=== PATIENT | female | born 1985 | race Caucasian/White ===

== ENCOUNTER 2020-12-04 14:41 | Day surgery (SDC) | payer BC ==
[~2020-12-04] VITALS: Ht 157.5 cm; Wt 112.5 kg
[~2020-12-04 14:41] MED LIST: LEVOTHYROXIN0.075 MG PO
[2020-12-04 15:10] VITALS: BP 154/95; PULSE 99; TEMP 98.7
[2020-12-04] MEDS ORDERED: FORTAMET500 M1 PO (15:30)
[2020-12-04] MEDS ORDERED: SYNTHROID0.2 MG/TAB PO (15:30)
[2020-12-04] MEDS ORDERED: FLOMAX 0.40.4 MG/CAP PO (15:31)
[2020-12-04] MEDS ORDERED: PROTONIX 40MG T40 MG PO (15:31)
[2020-12-04] MEDS ORDERED: THE MEDICINE S200 M2 PO (15:32)
[2020-12-04] MEDS ORDERED: PRENATAL TABLET PO (15:32)
[2020-12-04] MEDS ORDERED: VITAMIND3 5000 PO (15:32)
[2020-12-04] MEDS ORDERED: PYRIDIUM 100MG100 MG PO (16:23)
[2020-12-04] MEDS ORDERED: NORCO 325 MG-51 TAB PO (16:23)
[2020-12-04 17:25] VITALS: BP 138/81; PULSE 71; TEMP 97.5
--- NOTE | 2020-12-04 17:25 | NUR ---
The patient arrived back to [facility] from the recovery room and appears alert and oriented at this time. The patient denies any pain or nausea at this time. The patient has tried some ice chips and appears to be tolerating them well. The patient agrees to try some toast at this time. Post operative vital signs were started at this time. The patient's is at her bedside at this time. Call light is within reach. Will continue to monitor the patient.
[2020-12-04 17:38] VITALS: TEMP 97.5
[2020-12-04 17:40] VITALS: BP 156/86; PULSE 72
--- NOTE | 2020-12-04 17:40 | NUR ---
The patient ambulated to the bathroom with the stand by assistance of one nurse and appeared to tolerate the activity well. The patient voided without difficulty and reqeusts to try some sprite with her toast.
[2020-12-04 17:55] VITALS: BP 147/86; PULSE 72
--- NOTE | 2020-12-04 17:55 | NUR ---
Discharge instructions were reviewed with the patient and her at this time. They both verbalized understanding and have no questions for the nurse at this time. The patient's IV to her left hand was removed and a pressure dressing was applied to the site.
--- NOTE | 2020-12-04 18:07 | NUR ---
The patient was escorted out via wheelchair to a private vehicle by IVELISSE Barahona. The patient's belongings and discharge paperwork were sent with her. The patient's is present to drive her home.
== END 2020-12-04 18:07 | disposition home or self-care (01) ==
LOC: SDCO 14:41
DX: N20.1 Calculus of ureter (principal); K21.9 Gastro-esophageal reflux disease without esophagitis; E28.2 Polycystic ovarian syndrome; G43.909 Migraine, unspecified, not intractable, without status migrainosus; E66.9 Obesity, unspecified; Z68.42 Body mass index [BMI] 45.0-49.9, adult; Z20.822 Contact with and (suspected) exposure to COVID-19; Z79.890 Hormone replacement therapy; Z79.899 Other long term (current) drug therapy; Z79.84 Long term (current) use of oral hypoglycemic drugs
CPT/HCPCS: C1769; C1894; C2617; J0690; J1100; J1200; J1885; J2405; J2704; J3010; J7120; Q9967